=== PATIENT | male | born 1990 | race Caucasian/White ===

== ENCOUNTER 2022-04-08 12:21 | Inpatient (IN) ==
--- NOTE | 2022-04-08 12:56 | Emergency Department Note ---
History of Present Illness General Chief complaint: Illness Stated complaint: MEDICAL CLEARANCE FOR SENIOR CARE Time Seen by Provider: 04/08/22 12:44 History of Present Illness Maximum Pain Intensity: 7 This is a 31-year-old male that presents to the emergency department via private vehicle with complaints of "medical clearance for senior living". Patient notes that he was brought here from the [facility] by police to gain medical clearance prior to incarceration. Patient notes that he recently left [facility] a few days ago. He notes he left against medical advice and was to continue antibiotics but has not. He notes that he has had ongoing left knee discomfort. He notes there was concern for a septic joint when he was there. He notes they were concerned that he was septic/had bacteremia. He also notes right wrist/hand discomfort. No known trauma or injury. Patient does note some fevers earlier today. He also notes chills. Patient has a history of mitral valve prolapse, atrial fibrillation, asthma. Patient notes that he was to be on a baby aspirin. Patient does note a history of IV drug use, last of which was yesterday per patient and was heroin. Patient points to the right mid ventral forearm as a location of where he injected. Current pain 10. Patient is accompanied by 1 [facility] correction officer reformatory. Allergies Allergy/AdvReac Type Severity Reaction Status Date / Time No Known Allergies Allergy Unverified 04/08/22 20:33 Past Med/Surg History Medical History Depression Drug use disorder Mitral valve prolapse Septic joint Family History Other Family history non-contributory Social History Smoking Status: Current every day smoker Cigarettes Per Day: 5; Second Hand Exposure: Yes (friends); Do You Dip or Chew Tobacco: No; Hx Alcohol Use: No Hx Substance Use: Yes Last Used Substance: Days (ago) Last Used Substance Other:: heroin- 2 nights ago and methamphetamine- 1 week ago Preferred Language: Uzbek Communication Ability: Effective Cake Batter Mixer Required: No Beliefs That Will Affect Care: None Current Living Situation: Other Current Living Situation Comment: friend Other Information That Helps Us Care for You: No Feels Safe at Home: Yes Safety Concerns: Feels Safe At This Time Assistive Devices: None Review of Systems A total of 10 systems reviewed and were otherwise negative Physical Exam Vital Signs Vital Signs - 24 hr 04/08/22 16:02 04/08/22 17:09 Pulse Rate [Right Finger] 90 68 Respiratory Rate 18 18 Respiratory Effort / Characteristics Non-Labored Spontaneous Non-Labored Respiratory Depth Normal Normal Blood Pressure [Right Arm] 125/66 103/49 L Blood Pressure Mean [Right Arm] 85 67 Pulse Oximetry 96 98 Oxygen Delivery Method Room Air Room Air VITAL SIGNS - Vital signs and nursing notes were reviewed. Stable, afebrile. GENERAL -31-year-old male appearing his stated age who is in no acute distress. Communicates well with provider and answers questions appropriately. SKIN -ecchymosis present to the right AC consistent with recent IV placement. Small subcentimeter erythematous region to the ventral aspect of the right mid forearm where patient notes he last injected heroin. There is erythema about the left knee with a few abrasions. Similar appearance to the right knee. Right wrist mildly edematous without erythema. No break in the integument. HEAD - NC/AT. EYES - PERRL with EOMI bilaterally. Sclera anicteric. EARS - No deformities of external structures noted on gross examination bilat erally. NOSE - Midline and without cyanosis. No epistaxis or purulent drainage noted. MOUTH/OROPHARYNX - Without perioral cyanosis. NECK - Neck with FROM. No nuchal rigidity. LUNGS - Chest wall symmetric without accessory muscle use, intercostals retractions, or central cyanosis. Normal vesicular breath sounds CTA B/L. No wheezes, rales, or rhonchi appreciated. CARDIAC - RRR with S1/S2. No murmur, rubs, or gallops appreciated. ABDOMEN - Abdominal contour normal without pulsations or visible masses. BS normoactive all four quadrants. No tenderness, palpable masses, hepatosplenomegaly, or ascites noted. EXTREMITIES - No clubbing or peripheral cyanosis. No pretibial edema present. Skin as above. Left knee tender to palpation as well as the right wrist. No crepitus. No step-off. No laxity. Patient neurovascularly intact in the distal extremities without deficit. +5/5 strength noted in UE/LE bilaterally. NEUROLOGIC - Cranial nerves II through XII grossly intact. PSYCH - A&Ox3 and cooperates fully with examiner. Pt is very pleasant and interacts well with examiner. Course Administered Medications Acetaminophen (Acetaminophen 325 Mg Tab) 650 mg PO Q8 PRN PRN Reason: fever/pain Stop: 05/08/22 20:32 Last Admin: 04/09/22 08:04 Dose: 650 mg Documented By: Admin: 04/08/22 21:56 Dose: 650 mg Documented By: MONI Buspirone HCl (Buspirone 5 Mg Tab) 10 mg PO BID [facility] Stop: 05/08/22 20:59 Last Admin: 04/09/22 08:05 Dose: 10 mg Documented By: Admin: 04/08/22 21:55 Dose: 10 mg Documented By: MONI Clonidine HCl (Clonidine Hcl 0.3 Mg Tab) [facility] [place]: 05/08/22 20:32 Last Admin: 04/09/22 08:06 Dose: 0.3 mg Documented By: Admin: 04/08/22 21:55 Dose: 0.3 mg Documented By: MONI Vancomycin HCl 1,000 mg/ (Sodium Chloride) 270 mls @ 200 mls/hr IV Q8H [facility]; Protocol Stop: 05/20/22 22:59 Last Admin: 04/09/22 14:41 Dose: 200 mls/hr Documented By: Infusion: 04/09/22 07:59 Dose: 0 mls/hr Documented By: Admin: 04/09/22 06:31 Dose: 200 mls/hr Documented By: Infusion: 04/09/22 00:08 Dose: 0 mls/hr Documented By: Admin: 04/08/22 22:42 Dose: 200 mls/hr Documented By: MONI Oxcarbazepine (Oxcarbazepine 150 Mg Tablet) 300 mg PO BID [facility] Stop: 05/08/22 20:59 Last Admin: 04/09/22 08:05 Dose: 300 mg Documented By: Admin: 04/08/22 21:55 Dose: 300 mg Documented By: MONI Quetiapine Fumarate (Quetiapine Fumarate 200 Mg Tab) [facility] [place]: 05/09/22 08:59 Last Admin: 04/09/22 08:05 Dose: 200 mg Documented By: KHADAR Quetiapine Fumarate (Quetiapine Fumarate 300 Mg Tablet) 300 mg PO HS [facility] Stop: 05/08/22 20:59 Last Admin: 04/08/22 21:56 Dose: 300 mg Documented By: MONI Sertraline HCl (Sertraline Hcl 100 Mg Tablet) 100 mg PO BID [facility] Stop: 05/08/22 20:59 Last Admin: 04/09/22 08:05 Dose: 100 mg Documented By: Admin: 04/08/22 21:56 Dose: 100 mg Documented By: MONI Discontinued Medications Ceftriaxone Sodium 1,000 mg/ (Dextrose) 50 mls @ 100 mls/hr IV NOW STA Stop: 04/08/22 16:29 Last Infusion: 04/08/22 17:00 Dose: 0 mls/hr Documented By: Admin: 04/08/22 16:27 Dose: 100 mls/hr Documented By: MARCUS Vancomycin HCl 1,250 mg/ (Sodium Chloride) 525 mls @ 200 mls/hr IV NOW ONE Stop: 04/08/22 18:37 Last Admin: 04/08/22 17:07 Dose: 200 mls/hr Documented By: MARCUS Ceftriaxone Sodium 1,000 mg/ (Dextrose) 60 mls @ 120 mls/hr IV ONE ONE Stop: 04/08/22 21:14 Last Infusion: 04/08/22 22:40 Dose: 0 mls/hr Documented By: Admin: 04/08/22 22:01 Dose: 120 mls/hr Documented By: MONI Ketorolac Tromethamine (Ketorolac Tromethamine 15 Mg/Ml Vial) 15 mg IV NOW STA Stop: 04/08/22 14:52 Last Admin: 04/08/22 15:07 Dose: 15 mg Documented By: DANIEL Medical Decision Making Laboratory Data 04/08/22 13:16 04/08/22 13:16 Lab Results 04/08/22 04/08/22 04/08/22 Range/Units 13:16 13:16 13:16 WBC 12.61 H (4.8-10.8) K/ul RBC 4.74 (4.70-6.10) M/uL Hgb 13.7 L (14.0-18.0) g/dl Hct 39.6 L (42.0-52.0) % MCV 83.5 (80.0-100.0) fL MCH 28.9 (25.0-34.0) pg MCHC 34.6 (32.0-36.0) g/dL RDW Std Deviation 41.0 (36.4-46.3) fL RDW Coeff of Tushar 13.3 (11.5-14.5) % Plt Count 439 H (130-400) K/uL MPV 8.8 L (9.4-12.4) fL Immature Gran % (Auto) 0.4 % Neut % (Auto) 75.0 % Lymph % (Auto) 17.4 % [place] % (Auto) 6.0 % Eos % (Auto) 0.7 % Baso % (Auto) 0.5 % Neut # (Auto) 9.46 H (1.40-6.50) K/uL Lymph # (Auto) 2.19 (1.2-3.4) K/uL [place] # (Auto) 0.76 H (0.11-0.59) K/uL Eos # (Auto) 0.09 (0-0.50) K/uL Baso # (Auto) 0.06 (0-0.2) K/uL Immature Gran # (Auto) 0.05 (0.01-0.20) K/uL Sodium 135 L (136-145) mmol/L Potassium 4.1 (3.5-5.1) mmol/L Chloride 101 (98-107) mmol/L Carbon Dioxide 27 (21-32) mmol/L Anion Gap 7 (3-11) BUN 15 (6-23) mg/dl Creatinine 0.73 (0.6-1.4) mg/dl Est Cr Clr Drug Dosing 134.7 ml/min Est GFR ( Amer) 145.3 ml/min Est GFR (Non-Af Amer) 125.3 ml/min BUN/Creatinine Ratio 20.5 H (10-20) Glucose 96 (70-99(Fasting)) mg/dl Lactate 0.6 (0.4-2.0) mmol/L Calcium 9.5 (8.5-10.1) mg/dl Total Bilirubin 0.6 (0.2-1.0) mg/dl AST 26 (13-39) U/L ALT 18 (7-52) U/L Alkaline Phosphatase 90 (34-104) U/L Total Protein 7.4 (6.0-8.3) gm/dl Albumin 4.2 (3.4-5.0) gm/dl Globulin 3.2 (2.5-4.0) gm/dl Albumin/Globulin Ratio 1.3 (0.9-2) Procalcitonin (0-0.5) ng/ml Urine Color Urine Appearance (Clear) Urine pH (4.5-7.5) Ur Specific [place] (1.000-1.030) Urine Protein (Negative) Urine Glucose (UA) (Negative) Urine Ketones (Negative) Urine Blood (Negative) Urine Nitrite (Negative) Urine Bilirubin (Negative) Urine Urobilinogen (Negative) Ur Leukocyte Esterase (Negative) Urine WBC (Auto) (0-5) /hpf Urine RBC (Auto) (0-4) /hpf U Hyaline Cast (Auto) (0-5) /lpf U Epithel Cells (Auto) (0-5) /lpf Urine Bacteria (Auto) (Negative) Lyme Disease IgG Ab (Negative) Lyme Disease IgM Ab (Negative) SARS-CoV-2, RNA, NAAT (NEGATIVE) 04/08/22 04/08/22 04/08/22 Range/Units 13:16 14:20 15:56 WBC (4.8-10.8) K/ul RBC (4.70-6.10) M/uL Hgb (14.0-18.0) g/dl Hct (42.0-52.0) % MCV (80.0-100.0) fL MCH (25.0-34.0) pg MCHC (32.0-36.0) g/dL RDW Std Deviation (36.4-46.3) fL RDW Coeff of Tushar (11.5-14.5) % Plt Count (130-400) K/uL MPV (9.4-12.4) fL Immature Gran % (Auto) % Neut % (Auto) % Lymph % (Auto) % [place] % (Auto) % Eos % (Auto) % Baso % (Auto) % Neut # (Auto) (1.40-6.50) K/uL Lymph # (Auto) (1.2-3.4) K/uL [place] # (Auto) (0.11-0.59) K/uL Eos # (Auto) (0-0.50) K/uL Baso # (Auto) (0-0.2) K/uL Immature Gran # (Auto) (0.01-0.20) K/uL Sodium (136-145) mmol/L Potassium (3.5-5.1) mmol/L Chloride (98-107) mmol/L Carbon Dioxide (21-32) mmol/L Anion Gap (3-11) BUN (6-23) mg/dl Creatinine (0.6-1.4) mg/dl Est Cr Clr Drug Dosing ml/min Est GFR ( Amer) ml/min Est GFR (Non-Af Amer) ml/min BUN/Creatinine Ratio (10-20) Glucose (70-99(Fasting)) mg/dl Lactate (0.4-2.0) mmol/L Calcium (8.5-10.1) mg/dl Total Bilirubin (0.2-1.0) mg/dl AST (13-39) U/L ALT (7-52) U/L Alkaline Phosphatase (34-104) U/L Total Protein (6.0-8.3) gm/dl Albumin (3.4-5.0) gm/dl Globulin (2.5-4.0) gm/dl Albumin/Globulin Ratio (0.9-2) Procalcitonin < 0.05 (0-0.5) ng/ml Urine Color Yellow Urine Appearance Clear (Clear) Urine pH 6.5 (4.5-7.5) Ur Specific [place] 1.024 (1.000-1.030) Urine Protein Trace H (Negative) Urine Glucose (UA) Negative (Negative) Urine Ketones Trace H (Negative) Urine Blood Negative (Negative) Urine Nitrite Negative (Negative) Urine Bilirubin Negative (Negative) Urine Urobilinogen Negative (Negative) Ur Leukocyte Esterase Negative (Negative) Urine WBC (Auto) 1-5 (0-5) /hpf Urine RBC (Auto) 0-4 (0-4) /hpf U Hyaline Cast (Auto) 0 (0-5) /lpf U Epithel Cells (Auto) 5-10 H (0-5) /lpf Urine Bacteria (Auto) Negative (Negative) Lyme Disease IgG Ab Negative (Negative) Lyme Disease IgM Ab Positive A (Negative) SARS-CoV-2, RNA, NAAT NEGATIVE (NEGATIVE) Imaging Data Radiologist's Impression: Knee X-Ray 04/08/22 13:08 XR knee LT 3V HISTORY: 31 years-old Male L knee pain and swelling acute pain and swelling of the left knee COMPARISON: None TECHNIQUE: 3 views of the left knee FINDINGS: Small joint effusion with mild soft tissue swelling of the knee, most pronounced anteriorly and superior to the knee. No acute fracture, dislocation or osteoch ondral defect. Mild rotation on the lateral view. IMPRESSION: 1. No acute osseous abnormality. 2. Mild soft tissue swelling with small joint effusion. ACT 112: Negative or not required by law. The above report was generated using voice recognition software. It may contain grammatical, syntax or spelling errors. Electronically signed by: Jeff Cavanaugh M.D. 04/08/2022 1:46 PM Venous Doppler Study 04/08/22 14:53 ULTRASOUND LEFT LOWER EXTREMITY VENOUS CLINICAL HISTORY: Left leg pain. COMPARISON STUDY: Radiographs of left knee dated 04/08/2022. TECHNIQUE: Real-time, grayscale, and color Doppler sonography of the deep veins of the left lower extremity was performed from the inguinal crease to the calf. Compression and augmentation were utilized. FINDINGS: There is no sonographic evidence of deep venous thrombosis identified in the left lower extremity. The common femoral, superficial femoral, and popliteal veins are patent and normally compressible. The greater saphenous vein and the profunda femoris vein at the junction with the common femoral vein are clear. The visualized calf veins are patent. A suprapatellar joint effusion is noted. IMPRESSION: 1 There is no sonographic evidence of deep venous thrombosis identified in the left lower extremity. 2. Knee joint effusion. ACT 112: Negative or not required by law. Electronically signed by: Fritz Shelton M.D. 04/08/2022 3:58 PM [facility] Narrative Patient was seen and evaluated as above in room D04. Review was performed of triage nursing notes and vital signs. I did review pertinent previous visits and patient history as obtained from the [facility] via fax. After obtaining a thorough history and physical examination the above work up was performed. Patient presents to us today to gain medical clearance prior to incarceration. He is accompanied by 1 [facility] correction officer reformatory. Patient appears to be in pain but is able to converse. His vital signs are stable. Options of care were discussed with the patient. IV access was established. Labs were drawn. Mild leukocytosis. Anemia noted with hemoglobin of 13.7. No emergent metabolic disturbance. No evidence of kidney or liver failure. Urinalysis does not reveal any evidence of infection. Lyme IgM did result positive with Western blot pending. COVID test negative. Blood cultures also pending at this time. I was able to review the record as provided by [facility] where the patient had a recent ED visit as well as hospitalization. I reviewed the imaging results as well. At this time in the setting of patient's subjective reports of fever, joint pain with evidence of joint effusion clinically to the left knee in the setting of IV drug use at this time there is concern for infection. I do believe that we should proceed with inpatient management with IV antibiotics trending blood cultures and clinical status. Patient was empirically started on IV ceftriaxone and vancomycin. I did work with our ED pharmacist to clarify when he would have last received vancomycin prior to initiation of this medication. While here in the ED I did order a left knee x-ray and venous Doppler study of the left leg. No evidence of DVT. The patient does have evidence however of a joint effusion. Case discussed with the hospitalist. Patient amenable to plan of care. Please refer to further documentation regarding his stay. While here in the ED he also received IV Toradol for pain as he notes he has done well with this previously. GCS: 15 In the evaluation and treatment of this patient the following differential diagnoses were entertained: DVT, septic joint, Lyme arthritis, meningitis, encephalitis, cellulitis, abscess, bacteremia, among others. Impression & Plan Active intravenous drug use, Acute pain of left knee, Effusion of knee joint, left, Acute pain of right wrist Discharge Plan Visit Data Chief Complaint: Illness Stated Complaint: MEDICAL CLEARANCE FOR SENIOR CARE ED Provider: Jose Manuel Urrutia ED Midlevel Provider: Yunier Harvey Discharge Problem: Active intravenous drug use, Acute pain of left knee, Effusion of knee joint, left, Acute pain of right wrist Patient Disposition: Admitted As Inpatient Discharge Instructions Interventions: ED Discharge Assessment Last Done: 04/08/22 20:14
[2022-04-08 13:45] LABS: Basophils # (auto) 0.06 K/uL (0-0.2); Basophils % (auto) 0.5 %; Eosinophils # (auto) 0.09 K/uL (0-0.50); Eosinophils % (auto) 0.7 %; Hematocrit (blood only) 39.6 % (42.0-52.0); Hemoglobin 13.7 g/dl (14.0-18.0); Immature Granulocytes # (auto) 0.05 K/uL (0.01-0.20); Immature Granulocytes % (auto) 0.4 %; Lymphocytes # (auto) 2.19 K/uL (1.2-3.4); Lymphocytes % (auto) 17.4 %; Mean Corpuscular Hemoglobin 28.9 pg (25.0-34.0); Mean Corpuscular Hgb Conc 34.6 g/dL (32.0-36.0); Mean Corpuscular Volume 83.5 fL (80.0-100.0); Mean Platelet Volume 8.8 fL (9.4-12.4); Monocytes # (auto) 0.76 K/uL (0.11-0.59); Neutrophils # (auto) 9.46 K/uL (1.40-6.50); Platelet Count 439 K/uL (130-400); RDW Coefficient of Variation 13.3 % (11.5-14.5); Red Blood Count 4.74 M/uL (4.70-6.10); White Blood Count 12.61 K/ul (4.8-10.8)
--- NOTE | 2022-04-08 13:47 | XRay Report ---
XR knee LT 3V HISTORY: 31 years-old Male L knee pain and swelling acute pain and swelling of the left knee COMPARISON: None TECHNIQUE: 3 views of the left knee FINDINGS: Small joint effusion with mild soft tissue swelling of the knee, most pronounced anteriorly and super ior to the knee. No acute fracture, dislocation or osteochondral defect. Mild rotation on the lateral view. IMPRESSION: 1. No acute osseous abnormality. 2. Mild soft tissue swelling with small joint effusion. ACT 112: Negative or not required by law. The above report was generated using voice recognition software. It may contain grammatical, syntax o r spelling errors. Electronically signed by: Jeff Cavanaugh M.D. 04/08/2022 1:46 PM
[2022-04-08 14:05] LABS: Albumin Globulin Ratio 1.3 (0.9-2); Albumin Level 4.2 gm/dl (3.4-5.0); BUN Creatinine Ratio 20.5 (10-20); Bilirubin,Total 0.6 mg/dl (0.2-1.0); Calcium 9.5 mg/dl (8.5-10.1); Creatinine Clr Calc Pharmacy 134.7 ml/min; Est GFR (African American) 145.3 ml/min; Est GFR (Non-African American) 125.3 ml/min; Globulin 3.2 gm/dl (2.5-4.0); Potassium 4.1 mmol/L (3.5-5.1); Total Protein 7.4 gm/dl (6.0-8.3)
[2022-04-08 14:35] LABS: Procalcitonin < 0.05 ng/ml (0-0.5)
[2022-04-08] MEDS ORDERED: KETOROLAC TROMETHAMINE 15 MG/ML VIAL IV STA (14:51)
[2022-04-08] MEDS ORDERED: VANCOMYCIN CONSULT ACTIVE PRN ×2 (16:00→20:33)
[2022-04-08] MEDS ORDERED: VANCOMYCIN HCL 1,250 MG in SODIUM CHLORIDE 0.9% 500 ML IV ONE (16:00)
[2022-04-08] MEDS ORDERED: cefTRIAXone SODIUM 1,000 MG in DEXTROSE 5% AD-VAN 50 ML IV STA (16:00)
--- NOTE | 2022-04-08 16:00 | Ultrasound Report ---
ULTRASOUND LEFT LOWER EXTREMITY VENOUS CLINICAL HISTORY: Left leg pain. COMPARISON STUDY: Radiographs of left knee dated 04/08/2022. TECHNIQUE: Real-time, grayscale, and color Doppler sonography of the deep veins of the left lower ext remity was performed from the inguinal crease to the calf. Compression and augmentation were utilized . FINDINGS: There is no sonographic evidence of deep venous thrombosis identified in the left lower ext remity. The common femoral, superficial femoral, and popliteal veins are patent and normally compress ible. The greater saphenous vein and the profunda femoris vein at the junction with the common femora l vein are clear. The visualized calf veins are patent. A suprapatellar joint effusion is noted. IMPRESSION: 1 There is no sonographic evidence of deep venous thrombosis identified in the left lower extremity. 2. Knee joint effusion. ACT 112: Negative or not required by law. Electronically signed by: Fritz Shelton M.D. 04/08/2022 3:58 PM
--- NOTE | 2022-04-08 16:18 | History & Physical Report ---
Date of Service April 08, 2022 History of Present Illness Primary Care Provider: [employer] is a 31-year-old male with a past medical history of IV drug use recently seen in [place] for concerns of septic arthritis reportedly who was treated with Rocephin/vancomycin before leaving [place] who presented after being brought in by police requesting medical clearance prior to incarceration. History of IV drug use ULTRASOUND LEFT LOWER EXTREMITY VENOUS:1 There is no sonographic evidence of deep venous thrombosis identified in the left lower extremity. 2. Knee joint effusion. L Knee XR: 1. No acute osseous abnormality. 2. Mild soft tissue swelling with small joint effusion. Left knee hot/edematous with effusion OSH blood cultures? Records pending Concern for wrist involvement Blood cultures taken, pending Ortho consulted for septic arthritis reeval Continue Rocephin/vancomycin If recurrent blood cultures will require echo for endocarditis eval Leukocytosis of 12.61 Elevated platelets likely reactive Renal function normal, creatinine 0.73 on admission Past Med/Surg History Social History Smoking Status: Current every day smoker Preferred Language: Dominican Feels Safe at Home: Yes Results & Data Results & Data ([facility]) Vital Signs (Past 12 Hours) Vital Signs Temp Pulse Pulse Resp BP BP Pulse Ox 04/08/22 16:02 90 18 125/66 96 04/08/22 15:00 81 16 121/53 L 04/08/22 14:40 58 L 14 96 04/08/22 14:30 64 11 L 96 04/08/22 14:30 111/68 04/08/22 13:01 130/93 04/08/22 12:28 36.5 C 94 H 18 98 O2 Del Method 04/08/22 16:02 Room Air 04/08/22 15:00 04/08/22 14:40 Room Air 04/08/22 14:30 Room Air 04/08/22 14:30 Room Air 04/08/22 13:01 Room Air 04/08/22 12:28 Room Air PG Care Time/CCT Total # of Minutes Spent Total Time Spent with Patient: Total time spent is greater than 50% in coordination of care (as documented) at patient's floor/unit and/or counseling patient: Coding
[2022-04-08 16:19] LABS: Appearance Urine Clear (Clear); Bacteria Urine Automated Negative (Negative); Bilirubin Urine Negative (Negative); Blood Urine Negative (Negative); Cast Urine Automated 0 /lpf (0-5); Color Urine Yellow; Glucose Urine UA Negative (Negative); Ketones Urine Trace (Negative); Leukocyte Esterase Urine Negative (Negative); Nitrite Urine Negative (Negative); Protein Urine Trace (Negative); RBC Urine Automated 0-4 /hpf (0-4); Specific Gravity Urine 1.024 (1.000-1.030); Urobilinogen Urine Negative (Negative); pH Urine 6.5 (4.5-7.5)
--- NOTE | 2022-04-08 17:48 | History & Physical Report ---
Date of Service April 08, 2022 Assessment & Plan (1) Septic joint: Plan: Tender painful joints with history of IVDA- records and imaging reports from [facility] received- placed on hard chart - Continue with Vanco and Rocephin- PCT negative, await blood cx results - Appreciate Orthopaedics evaluation - consider re-imaging - ECHO ordered- no murmurs - Tylenol for pain - ESR/CRP in am (2) Drug use disorder: Plan: History of reported heroin and Meth use - follows with methadone clinic out on town - follow for any withdrawl Patient with warrant out - Prior to discharge or if patient leaves AMA- call [facility]- Point of Contact- Azucena Shetty ([phone]) - IF No response or AMA- call ALEXX Estrella- [phone] (3) Depression: Plan: Behavior disorder unspecified - Continue home medications - Seroquel, Trileptal, Buspar, Zoloft History of Present Illness Primary Care Provider: [facility] 31 YOM brought in by [facility] for medical clearance prior to being [facility] to [facility]. Patient has warrant out. Patient being admitted for evaluation/treatment of septic joints- knee/wrist. Patient was originally seen at [facility] on 02Apr2022- for complaints of swollen and painful right wrist, right arm, and right knee. He has reported history of heroin injection and meth use. Reported history of Mitral Valve Prolapse per record review. At [facility] patient was started on ABX therapy of Rocephin and Vancomycin and was admitted to the hospital- he reports that he just left and was then found wandering around confused and was picked up by [facility] with his warrant he was brought here. Patient continues to have pain in left knee and right wrist. He had MRI done on the 04/03/2022 at [facility] with interpretation of soft tissue swelling over dorsum of hand with small areas of localized fluid concern for possible small abscesses, small bone lesion in the proximal end of the proximal phalanx of the 5th digit associated with small joint fluid- concern for septic arthritis. Blood cultures were reported as negative- discharged/left AMA but was given Bactrim D/S for 7 days. Currently he endorses that he continues to have fevers and chills- that started again on Wednesday as well with worsening of joint pain. Currently he is very tender to his left knee above the patella and down the lateral tendon into the calf and posterior knee. Right wrist is not as painful and not errythemic. Headache that comes and goes. Patient will be admitted to follow fever curve, WBC curve, Orthopaedics consult has been placed, ECHO ordered. COVID test on admission is: NEGATIVE Past Med/Surg History Medical History Depression Drug use disorder Mitral valve prolapse Septic joint Family History Other Family history non-contributory Social History Smoking Status: Current every day smoker Preferred Language: French Feels Safe at Home: Yes Review of Systems Review of Systems: REVIEW OF SYSTEMS: Constitutional: (+) fever, sweats or chills Eyes: No diplopia, no worsening or blurred vision ENT: normal hearing, no trouble swallowing Respiratory: No cough, sputum, dyspnea at rest or on exertion Cardiovascular: No chest pain, tightness or palpitations Abdomen: No pain, nausea, vomiting, diarrhea or constipation Musculoskeletal: (+) joint pain, calf pain, swelling Neurologic: No weakness, numbness/tingling, or balance problems Psychiatric: No anxiety or depression Physical Exam Physical Exam: PHYSICAL EXAM: General: awake, alert, no apparent distress Head: Normocephalic, atraumatic ENT: PERRLA, EOMI, no pharyngeal exudate, mucous membranes dry Neuro: AAO x 3, speech clear and appropriate, strength intact bilaterally 5/5, sensation intact and equal all extremities and dermatomes, no pronator drift Chest: equal rise and fall of the chest, no accessory muscle use, no heaves or thrills, Clear to auscultation, on room air, Cardiac: Regular rate and rhythm, telemetry reviewed, skin warm dry, cap refill <3 seconds, peripheral pulses +2 no JVD, no murmur, no edema GI: NABS x 4 quadrants, soft, nontender to palpation, no rebound, guarding or tenderness : Spontaneously voiding, no pain, no CVA tenderness, MSK: Painful erytehmic left knee, LCL tender with palpation, tender into calf- negative duplex, no ballotment, right wrist and finger pain, no crepitus Psych: Normal mood and affect- coperative Skin: no rash or erythema Results & Data Results & Data ([facility]) Vital Signs (Past 12 Hours) Vital Signs Temp Pulse Pulse Resp BP BP Pulse Ox 04/08/22 17:09 68 18 103/49 L 98 04/08/22 16:02 90 18 125/66 96 04/08/22 15:00 81 16 121/53 L 04/08/22 14:40 58 L 14 96 04/08/22 14:30 64 11 L 96 04/08/22 14:30 111/68 04/08/22 13:01 130/93 04/08/22 12:28 36.5 C 94 H 18 98 O2 Del Method 04/08/22 17:09 Room Air 04/08/22 16:02 Room Air 04/08/22 15:00 04/08/22 14:40 Room Air 04/08/22 14:30 Room Air 04/08/22 14:30 Room Air 04/08/22 13:01 Room Air 04/08/22 12:28 Room Air Laboratory Results Abnormal lab results 04/08/22 04/08/22 04/08/22 Range/Units 13:16 13:16 15:56 WBC 12.61 H (4.8-10.8) K/ul Hgb 13.7 L (14.0-18.0) g/dl Hct 39.6 L (42.0-52.0) % Plt Count 439 H (130-400) K/uL MPV 8.8 L (9.4-12.4) fL Neut # (Auto) 9.46 H (1.40-6.50) K/uL [place] # (Auto) 0.76 H (0.11-0.59) K/uL Sodium 135 L (136-145) mmol/L BUN/Creatinine Ratio 20.5 H (10-20) Urine Protein Trace H (Negative) Urine Ketones Trace H (Negative) U Epithel Cells (Auto) 5-10 H (0-5) /lpf Diagnostic Findings Knee X-Ray 04/08/22 13:08 XR knee LT 3V HISTORY: 31 years-old Male L knee pain and swelling acute pain and swelling of the left knee COMPARISON: None TECHNIQUE: 3 views of the left knee FINDINGS: Small joint effusion with mild soft tissue swelling of the knee, most pronounced anteriorly and superior to the knee. No acute fracture, dislocation or osteochondral defect. Mild rotation on the lateral view. IMPRESSION: 1. No acute osseous abnormality. 2. Mild soft tissue swelling with small joint effusion. ACT 112: Negative or not required by law. The above report was generated using voice recognition software. It may contain grammatical, syntax or spelling errors. Electronically signed by: Jeff Cavanaugh M.D. 04/08/2022 1:46 PM Venous Doppler Study 04/08/22 14:53 ULTRASOUND LEFT LOWER EXTREMITY VENOUS CLINICAL HISTORY: Left leg pain. COMPARISON STUDY: Radiographs of left knee dated 04/08/2022. TECHNIQUE: Real-time, grayscale, and color Doppler sonography of the deep veins of the left lower extremity was performed from the inguinal crease to the calf. Compression and augmentation were utilized. FINDINGS: There is no sonographic evidence of deep venous thrombosis identified in the left lower extremity. The common femoral, superficial femoral, and popliteal veins are patent and normally compressible. The greater saphenous vein and the profunda femoris vein at the junction with the common femoral vein are clear. The visualized calf veins are patent. A suprapatellar joint effusion is noted. IMPRESSION: 1 There is no sonographic evidence of deep venous thrombosis identified in the left lower extremity. 2. Knee joint effusion. ACT 112: Negative or not required by law. Electronically signed by: Fritz Shelton M.D. 04/08/2022 3:58 PM Medications Administered Active Medications Vancomycin HCl 1,250 mg/ (Sodium Chloride) 525 mls @ 200 mls/hr IV NOW ONE Stop: 04/08/22 18:37 Last Admin: 04/08/22 17:07 Dose: 200 mls/hr Miscellaneous Information (Vancomycin Consult Active) 1 each N/A UD PRN PRN Reason: Consult Stop: 05/08/22 15:59 Code Status & VTE Plan VTE Prophylaxis Plan VTE Prophylaxis will be ordered: Yes Supervising Physician Co-Signing Physician Notes Patient seen and examined, chart reviewed, case discussed with Blaise Peterson PA-C and I agree with the assessment and plan as above except as otherwise noted Labs and images reviewed 31-year-old male with a past medical history of IV drug abuse who presents with L knee and R wrist pain suspicious for septic arthritis MRI right hand 04/03/2022: Subcutaneous soft tissue swelling over the dorsum of the hand with small areas of localized fluid dorsal to the fourth/fifth metacarpal heads. Small abscesses could not be completely excluded. Patient was discharged on Bactrim/Augmentin for 7 days, did decline ambulation/identification/follow-up information while in ER. Was at risk for endocarditis given history of IV drug abuse, patient reported ran out of methadone, showed sx of withdrawal and demanded discharge, At bedside patient is curled up with blanket overhead, reports he has had fevers, chills since wednesday and worsening L knee pain and R wrist pain. Has severe pain at the knee on attempted knee flexion/extension, is tender and warm at the knee and anterior LLE. Agree w/ admit and tx for suspected septic arthritis 2/2 IVDU. High risk for endocarditis. Rocephin+vanc. BCx2 pending. Ortho consulted. Pending complete record transfer from [facility]. Initial records reviewed without culture results/tap, by report pt did have a L knee tap+cx. If positive cultures PG Care Time/CCT Total # of Minutes Spent Total Time Spent with Patient: Total time spent is greater than 50% in coordination of care (as documented) at patient's floor/unit and/or counseling patient: Coding Level of Care Code 67021 INT INP/OBS CARE 2/55MIN Diagnoses Septic joint M00.9 Drug use disorder F19.90 Depression F32.A
[2022-04-08 18:58] LABS: Lyme Ab IgG w/WB Rflx Negative (Negative)
[2022-04-08 19:05] LABS: Lyme Ab IgM w/WB Rflx Positive (Negative)
[2022-04-08] MEDS ORDERED: SODIUM CHLORIDE 0.9% IV SCH (20:33)
[2022-04-08] MEDS ORDERED: VANCOMYCIN HCL IV SCH (20:33)
[2022-04-08] MEDS ORDERED: cefTRIAXone SODIUM 1,000 MG in DEXTROSE 5% 50 ML IV ONE (20:45)
--- NOTE | 2022-04-08 21:40 | Pharmacy Report ---
Pharmacy PK ABX Note - Date of Service April 08, 2022 - Assessment and Plan Assessment 31 year old M receiving vancomycin/ceftriaxone for treatment of septic joint. Pertinent microbiologic data includes: Blood cultures pending. Recent Bactrim use. Patient has history of IV drug abuse. Mild leukocytosis, afebrile, procal <0.05. Plan Vancomycin * Loading dose: 1250 mg IV x 1 * Maintenance dose: 1000 mg IV every 8 hours * Regimen is predicted to achieve target AUC/JOANN of 400-600 mg/L.hr * Level not currently ordered Pharmacy will continue to follow and will adjust dose/frequency as necessary. Thank you. Pharmacy has transitioned to AUC monitoring for vancomycin. AUC/JOANN is the preferred PK/PD target and is associated with decreased risk of nephrotoxicity compared to traditional trough targets.
[2022-04-08] MEDS: OXcarbazepine 150 MG TABLET PO SCH (21:55)
[2022-04-08] MEDS: cloNIDine HCL 0.3 MG TAB PO SCH (21:55)
[2022-04-08] MEDS: busPIRone 5 MG TAB PO SCH (21:55)
[2022-04-08] MEDS: ACETAMINOPHEN 325 MG TAB PO PRN (21:56)
[2022-04-08] MEDS: QUEtiapine FUMARATE 300 MG TABLET PO SCH (21:56)
[2022-04-08] MEDS: SERTRALINE HCL 100 MG TABLET PO SCH (21:56)
[2022-04-08] MEDS: VANCOMYCIN HCL 1,000 MG in SODIUM CHLORIDE 0.9% 250 ML IV SCH (22:42)
[2022-04-09] MEDS: VANCOMYCIN HCL 1,000 MG in SODIUM CHLORIDE 0.9% 250 ML IV SCH ×3 (06:31→22:07)
[2022-04-09 08:03] LABS: Basophils # (auto) 0.06 K/uL (0-0.2); Basophils % (auto) 0.9 %; Eosinophils # (auto) 0.19 K/uL (0-0.50); Eosinophils % (auto) 2.9 %; Hematocrit (blood only) 38.9 % (42.0-52.0); Hemoglobin 13.3 g/dl (14.0-18.0); Immature Granulocytes # (auto) 0.03 K/uL (0.01-0.20); Immature Granulocytes % (auto) 0.5 %; Lymphocytes # (auto) 2.17 K/uL (1.2-3.4); Lymphocytes % (auto) 32.8 %; Mean Corpuscular Hemoglobin 28.7 pg (25.0-34.0); Mean Corpuscular Hgb Conc 34.2 g/dL (32.0-36.0); Mean Platelet Volume 8.4 fL (9.4-12.4); Monocytes # (auto) 0.45 K/uL (0.11-0.59); Monocytes % (auto) 6.8 %; Neutrophils # (auto) 3.72 K/uL (1.40-6.50); Neutrophils % (auto) 56.1 %; Platelet Count 352 K/uL (130-400); RDW Coefficient of Variation 13.4 % (11.5-14.5); RDW Standard Deviation 41.6 fL (36.4-46.3); Red Blood Count 4.63 M/uL (4.70-6.10); White Blood Count 6.62 K/ul (4.8-10.8)
[2022-04-09] MEDS: ACETAMINOPHEN 325 MG TAB PO PRN ×2 (08:04→19:24)
[2022-04-09] MEDS: busPIRone 5 MG TAB PO SCH ×2 (08:05→19:24)
[2022-04-09] MEDS: SERTRALINE HCL 100 MG TABLET PO SCH ×2 (08:05→19:25)
[2022-04-09] MEDS: QUEtiapine FUMARATE 200 MG TAB PO SCH (08:05)
[2022-04-09] MEDS: OXcarbazepine 150 MG TABLET PO SCH ×2 (08:05→19:25)
[2022-04-09] MEDS: cloNIDine HCL 0.3 MG TAB PO SCH (08:06)
[2022-04-09 11:38] LABS: BUN Creatinine Ratio 28.9 (10-20); C Reactive Protein 3.74 mg/dl (0-0.5); Calcium 9.1 mg/dl (8.5-10.1); Creatinine Clr Calc Pharmacy 129.4 ml/min; Est GFR (African American) 142.9 ml/min; Est GFR (Non-African American) 123.3 ml/min; Magnesium 2.3 mg/dl (1.7-2.4); Potassium 3.8 mmol/L (3.5-5.1)
--- NOTE | 2022-04-09 13:44 | XCELERA ---
[id number]
[2022-04-09] MEDS: cefTRIAXone SODIUM 2,000 MG in DEXTROSE 5% 50 ML IV SCH (16:06)
[2022-04-09] MEDS: QUEtiapine FUMARATE 300 MG TABLET PO SCH (19:26)
[2022-04-09] MEDS ORDERED: GADOBUTROL 65ML VIAL IV ONE (23:34)
--- NOTE | 2022-04-10 00:12 | Hospitalist Progress Note ---
Date of Service April 10, 2022 Assessment & Plan (1) Septic joint: Plan: Tender painful joints with history of IVDA- records and imaging reports from [facility] received- placed on hard chart - Continue with Vanco and Rocephin- PCT negative, await blood cx results - Appreciate Orthopaedics evaluation - consider re-imaging - ECHO ordered- no murmurs - Tylenol for pain - ESR/CRP in am (2) Drug use disorder: Plan: History of reported heroin and Meth use - follows with methadone clinic out on town - follow for any withdrawl Patient with warrant out - Prior to discharge or [facility]- Azucena Shetty ([phone]) - IF No response or AMA- call ALEXX Estrella- [phone] (3) Depression: Plan: Behavior disorder unspecified - Continue home medications - Seroquel, Trileptal, Buspar, Zoloft Admission and Anticipated Discharge Date Admission Date: April 08, 2022 Subjective Patient seen and examined No chest pain no fevers Physical Exam Physical Exam: Head and ENT no thyroid enlargement trachea midline Cardiovascular S1-S2 are normal no S3 Lungs bilateral air entry fair no wheezing Abdomen soft nondistended positive bowel sounds no rebound tenderness Extremity shows trace edema Neurologically no focal deficits Skin shows no rash no cyanosis Results & Data Results & Data ([facility]) Vital Signs (Past 12 Hours) Vital Signs Temp Pulse Resp BP Pulse Ox O2 Del Method 04/09/22 21:58 36.8 C 79 18 103/58 L 97 Room Air 04/09/22 14:51 36.6 C 64 16 102/60 98 Room Air PG Care Time/CCT Total # of Minutes Spent Total Time Spent with Patient: Total time spent is greater than 50% in coordination of care (as documented) at patient's floor/unit and/or counseling patient: Coding Level of Care Code 43895 SUB INP/OBS CARE 04/01MIN Diagnoses Septic joint M00.9 Drug use disorder F19.90 Depression F32.A
--- NOTE | 2022-04-10 00:45 | Consultation Report ---
DATE OF CONSULTATION: 04/09/2022. PERTINENT HISTORY: This is a 31-year-old gentleman seen at the request of Dr. Bills regarding left knee pain, tender with limitations in range of motion, who initially was seen at [facility] and was admitted for concern of multiple painful joints, placed on IV antibiotics. The patient left the hospital prior to completing his treatment as recommended, then had some difficulty with law enforce ment due to IV drug abuse, picked up and then presented to [facility] as a preincar ceration evaluation due to pain. The patient was evaluated. Multiple laboratories were obtained, no ting increased white count and positive Lyme titer. Further workup is underway for Lyme disease. Th e patient apparently had an aspiration of the left knee. Results from that were obtained at [facility], results are pending. The patient states that his condition is improving in the knee a fter he has been on IV antibiotics here at [facility]. He also had some complaints of some right wrist discomfort, which has also improved. The patient admits that he has 7 cats that he live with in his residence and he did have a tick which was embedded for approximately 10-14 days . He did remove it, was approximately a month and a half to two months ago. The patient first noted pain in the left knee and the right wrist approximately Wednesday this last week. Symptoms worsened, t herefore resulting in his trip to [facility]. The patient is lying supine in his bed. He feels more comfortable. IV antibiotics appear to be improving his condition per the patient. PAST MEDICAL HISTORY: IV drug abuse with opiates, depression, multiple painful joints, recent onset, mitral valve prolapse. PAST SURGICAL HISTORY: Denies. ALLERGIES: No known drug allergies. MEDICATIONS: Denies. SOCIAL HISTORY: He smokes cigarettes daily, drinks alcohol occasionally. IV drug abuse, primarily w ith opiates/heroin for approximately 13 years. He is originally from the [place], [place], area . PHYSICAL EXAMINATION: This is a 31-year-old male who is lying supine in hospital room bed. He is so mnolent upon first presentation. He did awaken appropriately, answers all questions appropriately. A and O x3. Speech clear and fluent. Affect is appropriate. Examination of the left knee demonstrate s the skin is warm, dry and intact. There is no focal erythema, no evidence of fluctuance, no eviden ce of abscess. No evidence of skin lesions around the knee. He has point tenderness at the superola teral aspect of the knee at the patellofemoral joint. Range of motion is slow and guarded; however, he achieves 0 degree extension and 130 degrees of flexion with assistance. No obvious crepitation. There is no instability. Ligamentous exam is stable. DIAGNOSTIC DATA: Radiographs reviewed. Ultrasound reviewed, noting no obvious significant effusion. There is minimal effusion noted, however. No fractures. Normal alignment. IMPRESSION: 1. Left knee arthritis. 2. Left knee pain. 3. Left knee mild effusion. 4. Lyme disease positive. RECOMMENDATION: MRI of left knee to assess for internal derangement, possible osteochondral defect o f the patellofemoral articulation. Doubt septic arthritis. Continue IV antibiotics as per medical t eam. We will reassess after MRI is complete. May apply warm compress or ice to the left knee as kendra erated. Weightbearing as tolerated. Thank you for the opportunity to consult in the care of this patient. Job ID: [id number]
[2022-04-10] MEDS ORDERED: VANCOMYCIN LEVEL ONE (06:30)
--- NOTE | 2022-04-10 07:34 | Magnetic Resonance Report ---
MRI OF THE LEFT KNEE WITH AND WITHOUT CONTRAST CLINICAL HISTORY: Left knee pain and swelling. Assess for internal derangement and effusion. COMPARISON STUDY: Left knee radiographs April 08, 2022. TECHNIQUE: Utilizing a 1.5 Mariaa magnet and dedicated coil, multiplanar, multiecho imaging of the lef t knee was performed pre and postcontrast administration. Intravenous injection of 6 cc of Gadavist w as uneventful. FINDINGS: Alignment of the left knee is anatomic. Extensor mechanism is intact. There is a moderate s ize joint effusion. Diffuse synovial enhancement is noted. This is a nonspecific finding. A few suspe cted small joint bodies measure up to 3 mm. There is edema and enhancement within the adjacent muscul ature. There is no marrow edema to suggest acute osteomyelitis. No fluid collections to suggest an ab scess are identified. The anterior posterior cruciate ligaments are intact. The medial collateral lig ament and lateral collateral ligament complex are intact. There is linear intrasubstance signal withi n the posterior horn of the medial meniscus without extension to articular surface. There is no defin ite meniscal tear. Focal moderate chondrosis within the lateral patellar facet is noted. There is no chondrosis within the medial or lateral compartments. This exam is mildly compromised by motion artif act. IMPRESSION: 1. Moderate size left knee joint effusion with disuse synovial enhancement, a nonspecific finding. An infectious or inflammatory process is within the differential. Adjacent soft tissue edema and enhanc ement. No evidence for acute osteomyelitis. No abscesses. 2. Focal moderate chondrosis of the lateral patellar facet. 3. Intact cruciate and collateral ligaments. No definite meniscal tear. ACT 112: Negative or not required by law. Electronically signed by: Yan Palmer M.D. 04/10/2022 7:32 AM
[2022-04-10] MEDS: busPIRone 5 MG TAB PO SCH ×2 (08:14→21:12)
[2022-04-10] MEDS: OXcarbazepine 150 MG TABLET PO SCH ×2 (08:15→21:13)
[2022-04-10] MEDS: SERTRALINE HCL 100 MG TABLET PO SCH ×2 (08:15→21:13)
[2022-04-10] MEDS: cloNIDine HCL 0.3 MG TAB PO SCH (08:15)
[2022-04-10] MEDS: QUEtiapine FUMARATE 200 MG TAB PO SCH (08:15)
[2022-04-10 08:32] LABS: Basophils # (auto) 0.06 K/uL (0-0.2); Basophils % (auto) 0.7 %; Eosinophils # (auto) 0.08 K/uL (0-0.50); Eosinophils % (auto) 0.9 %; Hematocrit (blood only) 41.9 % (42.0-52.0); Hemoglobin 14.4 g/dl (14.0-18.0); Immature Granulocytes # (auto) 0.02 K/uL (0.01-0.20); Immature Granulocytes % (auto) 0.2 %; Lymphocytes # (auto) 2.16 K/uL (1.2-3.4); Mean Corpuscular Hemoglobin 28.7 pg (25.0-34.0); Mean Corpuscular Hgb Conc 34.4 g/dL (32.0-36.0); Mean Corpuscular Volume 83.5 fL (80.0-100.0); Monocytes # (auto) 0.41 K/uL (0.11-0.59); Monocytes % (auto) 4.8 %; Neutrophils % (auto) 68.4 %; Platelet Count 441 K/uL (130-400); RDW Coefficient of Variation 13.4 % (11.5-14.5); RDW Standard Deviation 41.1 fL (36.4-46.3); Red Blood Count 5.02 M/uL (4.70-6.10); White Blood Count 8.63 K/ul (4.8-10.8)
[2022-04-10 09:17] LABS: BUN Creatinine Ratio 24.7 (10-20); Creatinine Clr Calc Pharmacy 110.5 ml/min; Est GFR (African American) 133.9 ml/min; Est GFR (Non-African American) 115.5 ml/min; Magnesium 2.2 mg/dl (1.7-2.4); Potassium 3.8 mmol/L (3.5-5.1)
[2022-04-10] MEDS: VANCOMYCIN HCL 1,000 MG in SODIUM CHLORIDE 0.9% 250 ML IV SCH ×3 (09:17→23:41)
--- NOTE | 2022-04-10 09:46 | Pharmacy Report ---
Pharmacy PK ABX Note - Date of Service April 10, 2022 - Assessment and Plan Assessment 31 year old M receiving vancomycin/ceftriaxone for treatment of septic joint. Pertinent microbiologic data includes: Blood cultures show no growth at 24 hours. Lyme disease IgM Ab positive. Patient reports recent tick bite, embedded for 10-14 days. Recent Bactrim use. Patient has history of IV drug abuse. Mild leukocytosis on admission, now resolved. Procalcitonin unremarkable. Patient remains afebrile. Knee MRI on 04/09 shows no evidence of osteomyelitis, noted joint effusion w/ diffuse synovial enhancement. Possible infection in differential. TTE on 04/09 shows no evidence of vegetation. Plan Vancomycin * Current regimen: 1000 mg IV every 8 hours * Trough level obtained 04/10/22 resulted as 9.6 mcg/mL. This is predicted to achieve target AUC/JOANN of 400-600 mg/L.hr * Predicted AUC at steady state: 547 mg/L.hr * Continue 1000 mg IV every 8 hours * Will repeat level in the next 48-72 hours if therapy is continued and/or change in patient clinical status Ceftriaxone * 2 g IV q24h - no change Pharmacy will continue to follow and will adjust dose/frequency as necessary. Thank you. Pharmacy has transitioned to AUC monitoring for vancomycin. AUC/JOANN is the preferred PK/PD target and is associated with decreased risk of nephrotoxicity compared to traditional trough targets.
[2022-04-10 14:42] LABS: 18KDIGG Band NON-REACTIVE; 23KDIGG Band NON-REACTIVE; 23KDIGM Band NON-REACTIVE; 28KDIGG Band NON-REACTIVE; 30KDIGG Band NON-REACTIVE; 39KDIGG Band NON-REACTIVE; 39KDIGM Band REACTIVE; 41KDIGG Band REACTIVE; 41KDIGM Band NON-REACTIVE; 45KDIGG Band NON-REACTIVE; 58KDIGG Band NON-REACTIVE; 66KDIGG Band NON-REACTIVE; 93KDIGG Band NON-REACTIVE; Lyme Antibodies, WB IgG NEGATIVE (NEGATIVE); Lyme Antibodies, WB IgM NEGATIVE (NEGATIVE)
[2022-04-10] MEDS: ACETAMINOPHEN 325 MG TAB PO PRN (14:55)
--- NOTE | 2022-04-10 15:51 | Consultation Report ---
HISTORY: Patient seen in followup today regarding his left knee pain. His Lyme IgM and Lyme IgG are both positive indicating most likely arthritis related to Lyme disease. The patient is currently on IV antibiotics and showing some incremental improvement. No fevers or chills, and he has improved range of motion incrementally compared to yesterday's exam. PHYSICAL EXAMINATION: Examination of the left knee demonstrates left knee in stable, resting position approximately 4 degrees of comfortable flexion. He is able to achieve full extension and 135 degrees of flexion with assistance, which is an improvement compared to yesterday examination. Distal neurosensory exam is intact. Capillary refill is brisk, less than 2 seconds. Pedal pulses are palpable. He has mild effusion in the left knee. However, appears to be improved compared to yesterday examination. Continues to have tenderness. Tenderness to palpation at the patellofemoral articulation consistent with the MRI findings of osteochondral defect of the patella with small loose body fragments. MRI also notes incomplete tear of the medial meniscus without articular involvement. No obvious fractures, no evidence of osteomyelitis. Small effusion. No fractures. IMPRESSION: 1. Left knee arthritis. 2. Mild effusion, left knee. 3. Osteochondral defect of the patella with small loose bodies. 4. Lyme disease. 5. IV drug abuse. RECOMMENDATION: Weightbearing as tolerated, and they use alternating heat and cold for comfort, anti-inflammatories if approved by medical team. Continue IV antibiotics and then would consider transition to doxycycline for treatment of his presumed Lyme disease in addition to any other therapy recommended by medical team. 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 The patient can follow up with me in the clinic should he find he continues to have musculoskeletal complaints otherwise with successful treatment of his Lyme disease, most likely symptoms should resolve. Thank you for the opportunity to consult in the care of this patient. Job ID: [id number] [facility]on[facility]
[2022-04-10] MEDS: cefTRIAXone SODIUM 2,000 MG in DEXTROSE 5% 50 ML IV SCH (16:04)
[2022-04-10] MEDS: QUEtiapine FUMARATE 300 MG TABLET PO SCH (21:13)
[2022-04-11 07:18] LABS: Basophils # (auto) 0.07 K/uL (0-0.2); Basophils % (auto) 0.7 %; Eosinophils # (auto) 0.18 K/uL (0-0.50); Eosinophils % (auto) 1.9 %; Hematocrit (blood only) 42.8 % (42.0-52.0); Hemoglobin 14.5 g/dl (14.0-18.0); Immature Granulocytes # (auto) 0.04 K/uL (0.01-0.20); Immature Granulocytes % (auto) 0.4 %; Lymphocytes # (auto) 2.68 K/uL (1.2-3.4); Lymphocytes % (auto) 28.6 %; Mean Corpuscular Hemoglobin 28.5 pg (25.0-34.0); Mean Corpuscular Hgb Conc 33.9 g/dL (32.0-36.0); Mean Corpuscular Volume 84.1 fL (80.0-100.0); Mean Platelet Volume 8.7 fL (9.4-12.4); Monocytes # (auto) 0.53 K/uL (0.11-0.59); Monocytes % (auto) 5.7 %; Neutrophils # (auto) 5.87 K/uL (1.40-6.50); Neutrophils % (auto) 62.7 %; Platelet Count 415 K/uL (130-400); RDW Coefficient of Variation 13.4 % (11.5-14.5); RDW Standard Deviation 41.6 fL (36.4-46.3); Red Blood Count 5.09 M/uL (4.70-6.10); White Blood Count 9.37 K/ul (4.8-10.8)
[2022-04-11 07:40] LABS: BUN Creatinine Ratio 22.5 (10-20); Creatinine Clr Calc Pharmacy 110.5 ml/min; Est GFR (African American) 133.9 ml/min; Est GFR (Non-African American) 115.5 ml/min; Magnesium 2.2 mg/dl (1.7-2.4)
[2022-04-11] MEDS: VANCOMYCIN HCL 1,000 MG in SODIUM CHLORIDE 0.9% 250 ML IV SCH ×3 (08:06→23:16)
[2022-04-11] MEDS: SERTRALINE HCL 100 MG TABLET PO SCH ×2 (08:09→20:34)
[2022-04-11] MEDS: OXcarbazepine 150 MG TABLET PO SCH ×2 (08:09→20:33)
[2022-04-11] MEDS: cloNIDine HCL 0.3 MG TAB PO SCH (08:09)
[2022-04-11] MEDS: busPIRone 5 MG TAB PO SCH ×2 (08:09→20:33)
[2022-04-11] MEDS: QUEtiapine FUMARATE 200 MG TAB PO SCH (08:10)
[2022-04-11] MEDS: ACETAMINOPHEN 325 MG TAB PO PRN (08:12)
--- NOTE | 2022-04-11 14:58 | Hospitalist Progress Note ---
Date of Service April 10, 2022 Assessment & Plan (1) Septic joint: Plan: Tender painful joints with history of IVDA- records and imaging reports from [facility] received- placed on hard chart - Continue with Vanco and Rocephin- PCT negative, await blood cx results - Appreciate Orthopaedics evaluation - consider re-imaging - ECHO ordered- no murmurs - Tylenol for pain - ESR/CRP in am 2/3- follow MRI report continue iv abx (2) Drug use disorder: Plan: History of reported heroin and Meth use - follows with methadone clinic out on [facility] - follow for any withdrawl Patient with warrant out - Prior to discharge [facility]- Azucena Shetty ([phone]) - IF No response or AMA- call [facility] Estrella- [phone] (3) Depression: Plan: Behavior disorder unspecified - Continue home medications - Seroquel, Trileptal, Buspar, Zoloft Admission and Anticipated Discharge Date Admission Date: April 08, 2022 Subjective Patient seen and examined No chest pain no fevers pt somnolent but arousable Physical Exam Physical Exam: Head and ENT no thyroid enlargement trachea midline Cardiovascular S1-S2 are normal no S3 Lungs bilateral air entry fair no wheezing Abdomen soft nondistended positive bowel sounds no rebound tenderness Extremity shows trace edema Neurologically no focal deficits Skin shows no rash no cyanosis Results & Data Results & Data ([facility]) Vital Signs (Past 12 Hours) PG Care Time/CCT Total # of Minutes Spent Total Time Spent with Patient: Total time spent is greater than 50% in coordination of care (as documented) at patient's floor/unit and/or counseling patient: Coding Level of Care Code 69914 SUB INP/OBS CARE 04/01MIN Diagnoses Septic joint M00.9 Drug use disorder F19.90 Depression F32.A
[2022-04-11] MEDS: cefTRIAXone SODIUM 2,000 MG in DEXTROSE 5% 50 ML IV SCH (15:00)
[2022-04-11] MEDS: QUEtiapine FUMARATE 300 MG TABLET PO SCH (20:33)
--- NOTE | 2022-04-11 23:16 | Hospitalist Progress Note ---
Date of Service April 11, 2022 Assessment & Plan (1) Septic joint: Plan: Tender painful joints with history of IVDA- records and imaging reports from [facility] received- placed on hard chart - Continue with Vanco and Rocephin- PCT negative, await blood cx results - Appreciate Orthopaedics evaluation - consider re-imaging - ECHO ordered- no murmurs - Tylenol for pain - ESR/CRP in am 2/3- follow MRI report continue iv abx /-Ortho input noted along with MRI report Continue IV antibiotics with Vanco and ceftriaxone (2) Drug use disorder: Plan: History of reported heroin and Meth use - follows with methadone clinic out on [facility] - follow for any withdrawl Patient with warrant out - Prior to discharge or if patient leaves [facility] Contact- Azucena Shetty ([phone]) - IF No response or AMA- call [facility]- [phone] (3) Depression: Plan: Behavior disorder unspecified - Continue home medications - Seroquel, Trileptal, Buspar, Zoloft Admission and Anticipated Discharge Date Admission Date: April 08, 2022 Subjective Patient seen and examined No chest pain no fevers More awake today reports his knee pain is improving Physical Exam Physical Exam: Head and ENT no thyroid enlargement trachea midline Cardiovascular S1-S2 are normal no S3 Lungs bilateral air entry fair no wheezing Abdomen soft nondistended positive bowel sounds no rebound tenderness Extremity shows trace edema No worsening of his joint pain Neurologically no focal deficits Skin shows no rash no cyanosis Results & Data Results & Data ([facility]) Vital Signs (Past 12 Hours) Vital Signs Temp Pulse Resp BP Pulse Ox O2 Del Method 04/11/22 20:58 37.1 C 63 18 109/62 96 Room Air 04/11/22 14:56 37.3 C 64 20 108/60 97 Room Air Laboratory Results Short CBC 04/11/22 Range/Units 06:44 WBC 9.37 (4.8-10.8) K/ul Hgb 14.5 (14.0-18.0) g/dl Hct 42.8 (42.0-52.0) % Plt Count 415 H (130-400) K/uL BMP 04/11/22 06:44 Sodium 140 Potassium 4.0 Chloride 108 H Carbon Dioxide 25 BUN 20 Creatinine 0.89 Glucose 99 Calcium 10.0 PG Care Time/CCT Total # of Minutes Spent Total Time Spent with Patient: Total time spent is greater than 50% in coordination of care (as documented) at patient's floor/unit and/or counseling patient: Coding Level of Care Code 07944 SUB INP/OBS CARE 2/35MIN Diagnoses Septic joint M00.9 Drug use disorder F19.90 Depression F32.A
[2022-04-12] MEDS: VANCOMYCIN HCL 1,000 MG in SODIUM CHLORIDE 0.9% 250 ML IV SCH ×3 (07:19→23:27)
[2022-04-12 07:21] LABS: Hematocrit (blood only) 41.1 % (42.0-52.0); Mean Corpuscular Hemoglobin 28.7 pg (25.0-34.0); Mean Corpuscular Hgb Conc 34.1 g/dL (32.0-36.0); Mean Corpuscular Volume 84.4 fL (80.0-100.0); Mean Platelet Volume 8.4 fL (9.4-12.4); Platelet Count 357 K/uL (130-400); RDW Coefficient of Variation 13.5 % (11.5-14.5); RDW Standard Deviation 41.4 fL (36.4-46.3); Red Blood Count 4.87 M/uL (4.70-6.10); White Blood Count 8.72 K/ul (4.8-10.8)
[2022-04-12] MEDS: ACETAMINOPHEN 325 MG TAB PO PRN ×2 (07:24→19:51)
[2022-04-12 07:51] LABS: BUN Creatinine Ratio 19.8 (10-20); Calcium 9.9 mg/dl (8.5-10.1); Creatinine Clr Calc Pharmacy 114.4 ml/min; Est GFR (African American) 135.8 ml/min; Est GFR (Non-African American) 117.2 ml/min
[2022-04-12] MEDS: cloNIDine HCL 0.3 MG TAB PO SCH (08:46)
[2022-04-12] MEDS: OXcarbazepine 150 MG TABLET PO SCH ×2 (08:47→19:52)
[2022-04-12] MEDS: busPIRone 5 MG TAB PO SCH ×2 (08:47→19:52)
[2022-04-12] MEDS: SERTRALINE HCL 100 MG TABLET PO SCH ×2 (08:47→19:52)
[2022-04-12] MEDS: QUEtiapine FUMARATE 200 MG TAB PO SCH (08:48)
[2022-04-12] MEDS: cefTRIAXone SODIUM 2,000 MG in DEXTROSE 5% 50 ML IV SCH (15:33)
--- NOTE | 2022-04-12 18:48 | Hospitalist Progress Note ---
Date of Service April 12, 2022 Assessment & Plan (1) Septic joint: Plan: Tender painful joints with history of IVDA- records and imaging reports from [facility] received- placed on hard chart - Continue with Vanco and Rocephin- PCT negative, await blood cx results - Appreciate Orthopaedics evaluation - consider re-imaging - ECHO ordered- no murmurs - Tylenol for pain - ESR/CRP in am 04/10- follow MRI report continue iv abx 04/11-Ortho input noted along with MRI report Continue IV antibiotics with Vanco and ceftriaxone 04/12-patient being continued on IV antibiotic therapy with vancomycin and ceftriaxone Patient's joint pain in this left knee joint improving Echo done shows ejection fraction of 65% With no valvular pathology and no valvular vegetation Orthopedic input noted-recommend to start doxycycline to cover presumed Lyme's disease PT OT ordered (2) Drug use disorder: Plan: History of reported heroin and Meth use - follows with methadone clinic out on [facility] - follow for any withdrawl Patient with warrant out - Prior to discharge or if [facility] Contact- Azucena Shetty ([phone]) - IF No response or AMA- call [facility]- [phone] (3) Depression: Plan: Behavior disorder unspecified - Continue home medications - Seroquel, Trileptal, Buspar, Zoloft Admission and Anticipated Discharge Date Admission Date: April 08, 2022 Subjective Patient seen and examined No chest pain no fevers reported Patient mental status seems to have slightly improved since admission Likely representing improving withdrawal symptoms More awake today reports his knee pain is improving Physical Exam Physical Exam: Head and ENT no thyroid enlargement trachea midline Cardiovascular S1-S2 are normal no S3 Lungs bilateral air entry fair no wheezing Abdomen soft nondistended positive bowel sounds no rebound tenderness Extremity shows trace edema Left knee tenderness improving right wrist not painful No worsening of his joint pain Neurologically no focal deficits Skin shows no rash no cyanosis Results & Data Results & Data ([facility]) Vital Signs (Past 12 Hours) Vital Signs Temp Pulse Pulse Resp BP Pulse Ox O2 Del Method 04/12/22 15:37 36.9 C 59 L 16 106/67 98 Room Air 04/12/22 07:35 37 C 63 18 102/62 97 Room Air PG Care Time/CCT Total # of Minutes Spent Total Time Spent with Patient: Total time spent is greater than 50% in coordination of care (as documented) at patient's floor/unit and/or counseling patient: Coding Level of Care Code 97383 SUB INP/OBS CARE MIN Diagnoses Septic joint M00.9 Drug use disorder F19.90 Depression F32.A
[2022-04-12] MEDS: QUEtiapine FUMARATE 300 MG TABLET PO SCH (19:53)
[2022-04-13] MEDS ORDERED: VANCOMYCIN LEVEL ONE (07:30)
[2022-04-13] MEDS: OXcarbazepine 150 MG TABLET PO SCH (07:32)
[2022-04-13] MEDS: SERTRALINE HCL 100 MG TABLET PO SCH (07:33)
[2022-04-13] MEDS: busPIRone 5 MG TAB PO SCH (07:33)
[2022-04-13] MEDS: QUEtiapine FUMARATE 200 MG TAB PO SCH (07:33)
[2022-04-13 07:35] LABS: Hematocrit (blood only) 43.4 % (42.0-52.0); Hemoglobin 14.7 g/dl (14.0-18.0); Mean Corpuscular Hemoglobin 28.8 pg (25.0-34.0); Mean Corpuscular Hgb Conc 33.9 g/dL (32.0-36.0); Mean Corpuscular Volume 84.9 fL (80.0-100.0); Mean Platelet Volume 8.5 fL (9.4-12.4); Platelet Count 375 K/uL (130-400); RDW Coefficient of Variation 13.6 % (11.5-14.5); RDW Standard Deviation 42.2 fL (36.4-46.3); Red Blood Count 5.11 M/uL (4.70-6.10); White Blood Count 7.96 K/ul (4.8-10.8)
[2022-04-13] MEDS: cloNIDine HCL 0.3 MG TAB PO SCH (07:35)
[2022-04-13] MEDS: ACETAMINOPHEN 325 MG TAB PO PRN (07:40)
[2022-04-13] MEDS: VANCOMYCIN HCL 1,000 MG in SODIUM CHLORIDE 0.9% 250 ML IV SCH (08:25)
[2022-04-13 10:03] LABS: Calcium 10.3 mg/dl (8.5-10.1); Creatinine Clr Calc Pharmacy 103.5 ml/min; Est GFR (African American) 124.9 ml/min; Est GFR (Non-African American) 107.7 ml/min; Potassium 4.2 mmol/L (3.5-5.1)
[2022-04-13] MEDS ORDERED: DOXYCYCLINE HYCLATE 100 MG CAP PO SCH (10:45)
--- NOTE | 2022-04-13 13:17 | Discharge Summary ---
Date of Service April 13, 2022 Admission HPI Per Admitting Provider 31 YOM brought in by [facility] for medical clearance prior to being taken to [facility]. Patient has warrant out. Patient being admitted for evaluation/treatment of septic joints- knee/wrist. Patient was originally seen at [facility] on 02Apr2022- for complaints of swollen and painful right wrist, right arm, and right knee. He has reported history of heroin injection and meth use. Reported history of Mitral Valve Prolapse per record review. At [place] patient was started on ABX therapy of Rocephin and Vancomycin and was admitted to the hospital- he reports that he just left and was then found wandering around confused and was picked up by [facility] with his warrant he was brought here. Patient continues to have pain in left knee and right wrist. He had MRI done on the 04/03/2022 at [facility] with int erpretation of soft tissue swelling over dorsum of hand with small areas of localized fluid concern for possible small abscesses, small bone lesion in the proximal end of the proximal phalanx of the 5th digit associated with small joint fluid- concern for septic arthritis. Blood cultures were reported as negative- discharged/left AMA but was given Bactrim D/S for 7 days. Currently he endorses that he continues to have fevers and chills- that started again on Wednesday as well with worsening of joint pain. Currently he is very tender to his left knee above the patella and down the lateral tendon into the calf and posterior knee. Right wrist is not as painful and not errythemic. Headache that comes and goes. Patient will be admitted to follow fever curve, WBC curve, Orthopaedics consult has been placed, ECHO ordered. COVID test on admission is: NEGATIVE Principal Diagnosis Left knee arthralgia, possible Lyme disease Discharge Exam General-alert and oriented x3, no fevers, no chills HEENT-head atraumatic and normocephalic, pupils equal and reactive to light, extraocular muscles intact Neck-no lymphadenopathy or thyromegaly, trachea midline Chest-clear to auscultation percussion. No rales wheezing or rhonchi Cardiac-regular rate and rhythm, normal S1 and S2 Abdomen-normal bowel sounds, nontender, no hepatosplenomegaly Extremities-no cyanosis, clubbing, or edema. Limited range of motion left knee but no erythema or effusion noted Neuro-cranial nerves II through XII intact, motor and sensory function within normal limits, strength symmetrical , no focal deficits Psych-normal affect, normal mood Discharge Data Allergies Allergy/AdvReac Type Severity Reaction Status Date / Time No Known Allergies Allergy Unverified 04/08/22 20:33 Consultations 04/08/22 16:15 ED Decision to Admit Stat 04/08/22 21:05 Consult Orthopedic Surgery Routine Ordered Studies 04/08/22 14:53 US venous doppler LE LT Stat 04/09/22 19:54 MR knee LT wo/w con Routine Hospital Course (1) Septic joint: Ruled out. Arthralgia is possibly due to acute Lyme disease. Appreciate orthopedic consultation and recommendations. Doxycycline orally has been started. Left knee MRI report noted. Previously treated with intravenous vancomycin and Rocephin while hospitalized. ECHO reveals no evidence of valvular vegetations. (2) Drug use disorder: History of reported heroin and Meth use. Follows with methadone clinic out on town. (3) Depression: Behavior disorder unspecified . Treated with Seroquel, Trileptal, Buspar, Zoloft Plan Doxycycline has been started for 28 days for the possibility of underlying Lyme disease causing the arthralgia. [facility] special weapons and tactics officer will pick the patient up today since he will be discharged from the hospital today, April 13 Total Time Total Time Spent Total Time Spent (In Minutes): 35 minutes Discharge Plan Discharge Items [facility] Disposition[facility] Reason For Visit: SEPTIC JOINT Discharge Diagnosis: Diffuse arthralgias possibly from underlying Lyme disease Activity: Resume your previous activity Non-emergency contact: Primary Care Provider Call non-emergency contact if: you have any medication questions Follow-up/Referrals: PCP,NO [Primary Care Provider] - (NO FOLLOW UP FOR THIS PATIENT; DISCHARGED WITH [employer].) Diet: Regular Addtl Attending Provider Instructions: Take oral doxycycline for 28 days Pending Studies at Discharge: No Stand-Alone Forms: My [facility] Skilled Items Patient informed of condition?: Yes Discharge Level of Care: Other Communicable Disease: No Discharge Prognosis: Stable Lines: None Urinary Catheter: No Medications and DC Order Prescriptions: New doxycycline hyclate 100 mg Capsule 100 mg PO BID Qty: 28 0RF buspirone 5 mg Tablet 10 mg PO BID Qty: 10 0RF oxcarbazepine 150 mg Tablet 300 mg PO BID Qty: 10 0RF quetiapine [Seroquel] 200 mg Tablet 200 mg PO QAM Qty: 10 0RF quetiapine 300 mg Tablet 300 mg PO HS Qty: 10 0RF sertraline 100 mg Tablet 100 mg PO BID Qty: 10 0RF Discharge Orders: Discharge Order (Routine); Ordered 04/13/22 Ordered By: Collins Trivedi Admission Data Admit Date/Time: 04/08/22 17:32 Attending Provider: Collins Trivedi Admit Provider: Tanner Bills Primary Care Provider: PCP,NO Other Providers: Tanner Bills ; Fede Slaughter Coding Level of Care Code HOSP INP/OBS DISCH >30 MIN Diagnoses Septic joint M00.9 Drug use disorder F19.90 Depression F32.A
== END 2022-04-13 17:39 | DRG 869 ==
LOC: ED 12:21 → SUATTDRO 17:32 → 3W 17:32